=== PATIENT | female | born 1965 | race Caucasian/White ===

== ENCOUNTER 2025-01-04 05:56 | Day surgery (SDC) | payer BC ==
[~2025-01-04 05:56] MED LIST: Ketamine 200 MG/20 ML MDV IV SCH
[2025-01-04] MEDS: Scopalamine 1mg/3day Transdermal Patch TRDERM SCH (06:18)
[2025-01-04] MEDS: Cyclobenzaprine 5 MG Tab PO ONE (06:22)
[2025-01-04] MEDS: Lactated Ringers 1,000 ML IV SCH (06:39)
[2025-01-04] MEDS ORDERED: Bupivacaine 0.5% 50 ML MDV ONE (06:43)
[2025-01-04] MEDS ORDERED: Sodium Chloride 0.9% 0 ML ONE (06:44)
[2025-01-04] MEDS: Acetaminophen 1,000 MG in Premix Bag 1 BAG IV ONE (06:44)
[2025-01-04] MEDS: Heparin Sodium 5,000 Units/ML Vial SUBCUT ONE (06:46)
[2025-01-04] MEDS ORDERED: Sodium Chloride 0.9% 50 ML SDV ONE (06:47)
[2025-01-04] MEDS ORDERED: fentaNYL 250 MCG/5 ML SDV ONE (07:01)
[2025-01-04] MEDS ORDERED: Glycopyrrolate 0.2 MG/ML 5 ML MDV ONE (07:02)
[2025-01-04] MEDS ORDERED: Dexamethasone 4 MG/ML SDV ONE ×2 (07:02→07:58)
[2025-01-04] MEDS ORDERED: Rocuronium 50 MG/5 ML Vial ONE (07:02)
[2025-01-04] MEDS ORDERED: Neostigmine Methylsulfate 10 MG/10 ML MDV ONE (07:02)
[2025-01-04] MEDS ORDERED: Succinylcholine 200 MG/10 ML MDV ONE (07:02)
[2025-01-04] MEDS ORDERED: Propofol 200 MG/20 ML SDV ONE ×2 (07:02→08:25)
[2025-01-04] MEDS ORDERED: Ondansetron 4 MG/2 ML SDV ONE (07:02)
[2025-01-04] MEDS ORDERED: Ketorolac 30 MG/ML SDV ONE (07:58)
[2025-01-04] MEDS: Bupivacaine 0.5%/EPINEPHrine 1:200,000 50 ML MDV ONE (08:00)
[2025-01-04] MEDS ORDERED: ePHEDrine 50 MG/ML SDV ONE (08:04)
[2025-01-04] MEDS ORDERED: Sodium Chloride 0.9% 10 ML ONE (08:04)
[2025-01-04] MEDS ORDERED: oxyCODONE 5 MG Tab PO PRN (08:44)
[2025-01-04] MEDS: Sodium Chloride 0.9% 10 ML Syringe FLUSH ONE (11:23)
[2025-01-04] MEDS: Sodium Chloride 0.9% 100 ML IV SCH (11:23)
[2025-01-04] MEDS: Iopamidol 612 MG/ML 100 ML Bottle IV SCH (11:24)
[2025-01-04] MEDS: Lidocaine 1% 20 ML MDV INJECT ONE (15:19)
[2025-01-04 18:11] LABS: BASOPHILS ABSOLUTE AUTO 0.01 K/uL (0.00-0.10); BASOPHILS PERCENT AUTO 0.1 % (0.1-1.3); HEMATOCRIT 42.3 % (34.3-46.0); HEMOGLOBIN 13.8 g/dL (11.2-15.5); IMMATURE GRAN ABSOLUTE AUTO 0.03 K/uL (0.00-0.23); IMMATURE GRAN PERCENT AUTO 0.4 % (0.0-0.7); LYMPHOCYTES PERCENT AUTO 6.5 % (11.4-47.7); MEAN CORPUSCULAR HEMOGLOBIN 27.7 pg (31.6-35.5); MEAN CORPUSCULAR HGB CONC 32.6 g/dL (31.6-35.5); MEAN CORPUSCULAR VOLUME 84.8 fL (81.4-99.0); MONOCYTES ABSOLUTE AUTO 0.05 K/uL (0.20-0.90); MONOCYTES PERCENT AUTO 0.6 % (3.3-12.6); NEUTROPHILS ABSOLUTE AUTO 7.16 K/uL (1.0-7.6); NEUTROPHILS PERCENT AUTO 92.4 % (40.0-78.1); PLATELET COUNT,PLT 191 K/uL (130-375); RED BLOOD CELL COUNT 4.99 M/uL (3.77-5.24); WHITE BLOOD CELL COUNT,WBC 7.8 K/uL (3.2-11.0)
[2025-01-06 17:17] LABS: BETA-2-MICROGLOBULIN,SER/PLAS 2.2 mg/L (<=3.0)
[2025-01-06 17:27] LABS: CANCER ANTIGEN 125 40 U/mL (<=38)
[2025-01-06 18:30] LABS: CARCINOEMBRYONIC ANTIGEN 0.6 ng/mL (<=3.8)
[2025-01-07 23:44] LABS: ALBUMIN 4.15 g/dL (3.75-5.01); ALPHA 1 GLOBULIN 0.36 g/dL (0.19-0.46); ALPHA 2 GLOBULIN 0.66 g/dL (0.48-1.05); BETA GLOBULIN 0.78 g/dL (0.48-1.10); GAMMA 0.95 g/dL (0.62-1.51); TOTAL PROTEIN,SERUM 6.9 g/dL (6.3-8.2)
== END 2025-01-05 11:40 | disposition home or self-care (01) ==
LOC: JP.ICU 05:56 → JP.SDS 05:56 → EDSTATUS 07:30 → JP.SDS 08:44 → JP.ICU 08:44
PROVIDERS: ATTEND Surgery
DX: E66.01 Morbid (severe) obesity due to excess calories (principal); K21.9 Gastro-esophageal reflux disease without esophagitis; E11.59 Type 2 diabetes mellitus with other circulatory complications; I10 Essential (primary) hypertension; E11.69 Type 2 diabetes mellitus with other specified complication; E78.5 Hyperlipidemia, unspecified; G47.33 Obstructive sleep apnea (adult) (pediatric); Z68.42 Body mass index [BMI] 45.0-49.9, adult; Z87.891 Personal history of nicotine dependence; Z79.899 Other long term (current) drug therapy; Z88.5 Allergy status to narcotic agent; Z88.0 Allergy status to penicillin
CPT/HCPCS: 36415; 38505; 49320; 71260; 74177; 76830; 76857; 76942; 82232; 82378; 82947; 83615; 84155; 84165; 85025; 86304; 86850; 86900; 86901; 99233; A9270; J0131; J0330; J0690; J1100; J1596; J1644; J2405; J2704; J2710; J3010; J3490; J7120; Q9967; J0665; J1885